=== PATIENT | male | born 1970 | race Caucasian/White ===

== ENCOUNTER → 2018-06-08 | Outpatient (CLI) | payer OTHER ==
--- NOTE | 2018-06-08 15:24 | RAD ---
Focused ultrasound evaluation of the anterior abdominal wall 06/08/2018 INDICATION: Palpable mass, above the umbilicus COMPARISON STUDY: None available Discussion: Ultrasound evaluation of a palpable abnormality located superior to the umbilicus abdominal midline was performed. Static images are submitted to PACS. There is a somewhat heterogenous hypoechoic mass with multifocal shadowing, limiting visualization. Mass is estimated to measure approximately 2.1 cm in diameter. IMPRESSION: Nonspecific, approximately 2.1 cm heterogenous mass in the anterior abdominal wall just superior to the umbilicus.Given limitations of study differential considerations are broad include a ventral hernia with or without bowel, or focal mass of the anterior abdominal wall. Contrast-enhanced CT recommended for further characterization. Electronically signed by: Nino Mckinnon MD (06/08/2018 3:21 PM) [id number]
== END | disposition home or self-care (01) ==
LOC: US 08:31
PROVIDERS: ATTEND Registered Nurse
DX: K46.9 Unspecified abdominal hernia without obstruction or gangrene (principal); R19.05 Periumbilic swelling, mass or lump
CPT/HCPCS: 76705

== ENCOUNTER → 2018-06-22 | Outpatient (CLI) | payer OTHER ==
[~2018-06-22] MED LIST: IOHEXOL 240 MG/ML 50ML VIAL. PO ONE; IOHEXOL 300 MG/ML 75 ML VIAL. IV ONE
[2018-06-22 07:53] LABS: CREATININE 0.9 mg/dL (0.7-1.3); GFR 90.8
--- NOTE | 2018-06-22 09:31 | RAD ---
CT ABD PELV W/ORAL IV CONTRAST Indication: Abdominal pain Technique: Postcontrast CT imaging was performed of the abdomen pelvis, multiplanar reconstruction images submitted. Oral contrast was also given. One or more of the following individualized dose reduction techniques were utilized for this examination: 1. Automated exposure control 2. Adjustment of the mA and/or kV according to patient size 3. Use of iterative reconstruction technique. Comparison: None other than June 08, 2018 limited abdomen ultrasound exam Findings: There is no abnormality limited visualized lung bases. There is likely hepatic steatosis. No focal abnormality is identified of the spleen, liver, pancreas. Both kidneys enhance, no hydronephrosis. There are 5 adjacent hypodense foci of the inferior left kidney with the largest about 2.6 cm with density measurements of a cyst 13 Hounsfield units, other adjacent smaller foci difficult to accurately characterize given smaller size although largest of these also more cystlike. There are 3 small hypodense foci of the right kidney, largest near the midpole about 0.8 cm difficult to accurately characterize given smaller size, density characteristics of larger focus about 20 Hounsfield units. Bowel is not significantly dilated. There is no free fluid or free air. There is no significant inflammatory type change about the bowel. Normal appendix is visualized. There is small umbilical fascial defect about 1.4 cm transverse with some internal fat, no internal bowel. There is no adrenal nodularity. 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 Facet degenerative change contributes to moderate narrowing of the left T10-11 neural foramen. IMPRESSION: 1. No acute inflammatory type change is identified, no CT evidence of acute appendicitis. 2. There is suspected hepatic steatosis. 3. There are hypodense foci of the bilateral kidneys most of which are difficult to accurately characterize given small size, largest focus of the inferior left kidney compatible with a cyst. 4. There is a small umbilical fascial defect with internal fat, no internal bowel. Electronically signed by: Roc Yarbrough MD (06/22/2018 9:28 AM) [id number]
== END | disposition home or self-care (01) ==
LOC: CT 07:13
PROVIDERS: ATTEND Registered Nurse
DX: R19.00 Intra-abdominal and pelvic swelling, mass and lump, unspecified site (principal); M47.814 Spondylosis without myelopathy or radiculopathy, thoracic region; M48.04 Spinal stenosis, thoracic region; M47.815 Spondylosis without myelopathy or radiculopathy, thoracolumbar region
CPT/HCPCS: 36415; 74177; 82565; 84520; Q9966; Q9967